=== PATIENT | female | born 2000 | race Caucasian/White ===

== ENCOUNTER 2021-03-08 15:51 | Emergency (ER) | payer OTHER, SELFPAY ==
[2021-03-08 15:56] VITALS: BP 113/63; PULSE 114; RESP 20; TEMP 36.7; O2SAT 100
--- NOTE | 2021-03-08 15:56 | ED.URI ---
HPI - URI/Sore Throat General Chief Complaint: Upper Respiratory Infection Stated Complaint: HEADACHE/SORE THROAT/DRAINAGE Time Seen by Provider: 03/08/21 15:56 Source: patient and RN notes reviewed Mode of arrival: ambulatory Limitations: no limitations History of Present Illness HPI Narrative: 20-year-old female presents to the [facility] with complaints of frontal sinus pain, postnasal drip and sore throat. States that when she woke up she started having the symptoms. Had taken ibuprofen 1 time at 2 PM today. Denies any cough, shortness of breath or chest pain. Denies fever. No history of asthma Denies any concerns for COVID-19. No loss of taste or smell. Related Data Allergies Allergy/AdvReac Type Severity Reaction Status Date / Time No Known Allergies Allergy Unverified 03/26/15 00:02 Review of Systems Review of Systems: All systems reviewed & are unremarkable except as noted in HPI and below Constitutional: Constitutional: Reports no additional constitutional complaints, Denies chills, Denies fatigue and Denies fever(s) ENT: Reports as per HPI, Denies change in voice, Reports headache(s) (frontal), Denies hoarseness, Reports nasal congestion, Reports nasal discharge, Reports sinus pressure and Reports sore throat Cardiovascular: Cardiovascular: Reports no additional cardiovascular complaints Respiratory: Respiratory: Reports no additional respiratory complaints, Denies chest congestion and Denies cough Gastrointestinal: Gastrointestinal: Reports no additional gastrointestinal complaints Musculoskeletal: Musculoskeletal: Reports no additional musculoskeletal complaints Integumentary/Breasts: Skin/Breast: Reports system reviewed and no additional complaints, except as docu Neurologic: Reports system reviewed and no additional complaints, except as documented Psychiatric: Psychiatric: Reports no additional psychiatric complaints PMFSH Comments At the time of my signature, I reviewed and agree with the nursing past medical, surgical, social, and family history. There is no relevant family history pertinent to the patient complaint. Exam Const: General: cooperative, healthy appearing, comfortable, no acute distress, well developed, alert and awake Nutritional Appearance: average body habitus Orientation/consciousness: patient oriented x3 Limitations: no limitations HENMT: Head: normal to inspection Ears: hearing grossly normal bilaterally, external ears normal and TM's normal bilaterally General nose exam: Normal external nose present, Abnormal mucous membranes and turbinates present boggy and Nasal discharge present clear Mouth: Yes Normal oral and palatal mucosa present and Yes lip normal Teeth and gingiva: dentition normal Throat: postnasal drainage Eyes: General: appearance normal, both eyes and all related structures Neck: Neck: normal visual inspection, full ROM and no lymphadenopathy Chest: Chest palpation & inspection: normal inspection of the chest Resp: Effort & Inspection: normal respiratory effort, able to speak in complete sentences, no audible wheezes, no cough and no respiratory distress Auscultation: clear to auscultation bilaterally Back/Spine/Pelvis: Back: no CVA tenderness Skin: General skin exam: normal color and no rashes or lesions noted Neuro: General: patient oriented x3, gait normal and moves all extremities Speech: normal speech Gait exam (Neuro): Normal gait present Extrem: General: normal to inspection, full ROM and capillary refill normal Psych: Appearance: grossly normal and well kempt Mental Status: mental status grossly normal Speech and movement: Normal speech and movement present Affect: normal affect Attitude: cooperative Thought process: Normal thought process present Thought content: Yes Normal thought content present Course Vital Signs Vital signs: Vital Signs Temperature 98.1 F 03/08/21 15:56 Pulse Rate 114 H 03/08/21 15:56 Respiratory Rate 20
== END 2021-03-08 16:14 | disposition home or self-care (01) ==
PROVIDERS: Emergency Provider Nurse Practitioner; PCP Urology
DX: R09.82 Postnasal drip (principal); J00 Acute nasopharyngitis [common cold]; J01.90 Acute sinusitis, unspecified
CPT/HCPCS: 87081; 87880; 99213; G0463

== ENCOUNTER 2022-03-23 17:44 | Emergency (ER) | payer OTHER, SELFPAY ==
[2022-03-23 17:50] VITALS: BP 122/73; PULSE 99; RESP 16; TEMP 36; O2SAT 100
--- NOTE | 2022-03-23 17:52 | ED.URI ---
HPI - URI/Sore Throat General Chief Complaint: Upper Respiratory Infection Stated Complaint: SORE THROAT/COUGH/TIRED Source: patient and RN notes reviewed Mode of arrival: ambulatory Limitations: no limitations History of Present Illness HPI Narrative: 21y/o female presented for c/o cough, sore throat and fatigue for about one week. Cough is worse at night, productive of green sputum, and she states it feels like mucus is stuck in her throat. States ears feel itchy. Denies sob, wheezing, sinus pressure, n/v/d/f/c. Taking otc meds with temporary relief. Home covid test negative 4 days ago. She is not boosted for covid. States brother has a sore throat as well. MD elicited complaint: cough Related Data Home Medications Medication Instructions Recorded Confirmed drospirenone 3 mg-ethinyl tablet 03/23/22 estradiol 0.02 mg tablet montelukast 10 mg tablet tablet 03/23/22 Allergies Allergy/AdvReac Type Severity Reaction Status Date / Time No Known Allergies Allergy Unverified 03/23/22 17:52 Review of Systems Review of Systems: CONSTITUTIONAL: Endorses malaise EYES: Denies visual changes, redness, or discharge ENT: Reports rhinorrhea, congestion, sinus pain, otalgia, sore throat CARDIOVASCULAR: Denies chest pain, palpitations, edema RESPIRATORY: Reports cough, post nasal drainage. Denies dyspnea Exam Narrative: GENERAL: Well-appearing EYES: conjunctivae clear ENT: Mucous membranes moist. TM pearly liu with normal light reflex bilaterally; no tragal tenderness. Oropharynx erythematous without lesions or exudate, tonsils absent, no drooling, no hoarseness, no trismus, uvula midline. NECK: Supple. No lymphadenopathy CHEST: Clear to auscultation, breath sounds equal. HEART: Regular rate and rhythm. No murmur heard. SKIN: Warm, dry, no rash. Course Course Emergency Course: Patient is aware of diagnosis, understands and agrees to treatment plan. Anticipatory guidance given. Patient agrees to follow-up as directed and is aware of reasons to seek care at the emergency department. Portions of this record may have been created with voice recognition software Level of Care: Express Care Visit Vital Signs Vital signs: Vital Signs Temperature 96.8 F L 03/23/22 17:50 Pulse Rate 99 03/23/22 17:50 Respiratory Rate 16 03/23/22 17:50 Blood Pressure 122/73 03/23/22 17:50 Pulse Oximetry 100 03/23/22 17:50 Oxygen Delivery Room Air 03/23/22 17:50 Temperature 96.8 F L 03/23/22 17:50 Pulse Rate 99 03/23/22 17:50 Respiratory Rate 16 03/23/22 17:50 Blood Pressure 122/73 03/23/22 17:50 Pulse Oximetry 100 03/23/22 17:50 Oxygen Delivery Room Air 03/23/22 17:50 reviewed MDM - URI/Sore Throat MDM Narrative Medical decision making narrative: Strep negative. She is advised on supportive treatments, prescription for steroid and Tessalon Perles. She is advised to follow-up with PCP. Verbalizes understanding. Differential Diagnosis Differential diagnosis: Likely upper respiratory infection, sinusitis, viral infection and pharyngitis Lab Data Labs: Strep Screen Presumptive Negative *(Reference Range: Negative)* Discharge Plan Discharge Clinical Impression: Pharyngitis, Allergic rhinitis Patient Disposition: Home, Self-Care Condition: Stable Instructions: Allergic Rhinitis (ED) Additional Instructions: Rapid strep swab was negative today You will be notified in a few days if the culture comes back positive for strep, and appropriate antibiotics will be called in at that time. if symptoms are due to a viral illness, it is not treated with antibiotics. Viral symptoms can be present for up to 10-14 days. Recommend Flonase spray and Zyrtec if you have sinus congestion Cough syrup may cause drowsiness; avoid driving or take it at night time. Tylenol 1000mg every 8 hours as needed for pain/fever Soft foods,
== END 2022-03-23 18:30 | disposition home or self-care (01) ==
PROVIDERS: Emergency Provider Nurse Practitioner Family; PCP Urology
DX: J02.9 Acute pharyngitis, unspecified (principal); J30.9 Allergic rhinitis, unspecified
CPT/HCPCS: 87081; 87880; 99213; G0463

== ENCOUNTER → 2022-08-11 16:55 | Outpatient (CLI) | payer OTHER, SELFPAY ==
--- NOTE | ~2022-08-11 | MR_ITS ---
EXAMINATION: MR lower leg LT wo con DATE: 08/11/2022 17:41 INDICATION: Postinflammatory skin changes. Left lower leg pain and erythema. TECHNIQUE: Magnetic resonance imaging (MRI) of the left lower leg was performed without intravenous c ontrast. COMPARISON: Left ankle radiographs 07/14/2013 FINDINGS: Bone alignment is normal. No fracture. Bone marrow signal intensity is normal. The musculat ure is normal. The neurovascular bundles are normal. There is a skin marker overlying distal fibular diaphysis. There is subcutaneous fat stranding in this area. There is fat stranding anterior to the A chilles tendon. Partially visualized is a small knee joint effusion. There is a small Miller's cyst. IMPRESSION: 1. Fat stranding superficial to distal fibular diaphysis and anterior to Achilles tendon, consistent with inflammation. Reviewed, dictated and finalized at location A. IMPRESSION: 1. Fat stranding superficial to distal fibular diaphysis and anterior to Achill es tendon, consistent with inflammation.
== END ==
PROVIDERS: PCP Urology
DX: R23.8 Other skin changes (principal)
CPT/HCPCS: 73718

== ENCOUNTER 2022-08-30 17:16 | Emergency (ER) | payer OTHER, SELFPAY ==
--- NOTE | 2022-08-30 17:28 | ED.URI ---
HPI - URI/Sore Throat General Chief Complaint: Upper Respiratory Infection Stated Complaint: cough, sore throat, headache Time Seen by Provider: 08/30/22 17:40 Source: patient Mode of arrival: ambulatory Limitations: no limitations History of Present Illness HPI Narrative: Ludwig is a 21-year-old female patient presenting to clinic today with complaints of cough, sore throat, and headache x4 days. She denies any fever or chills. She denies any known sick contacts MD elicited complaint: sore throat and nasal congestion Related Data Home Medications Medication Instructions Recorded Confirmed drospirenone 3 mg-ethinyl tablet 03/23/22 estradiol 0.02 mg tablet montelukast 10 mg tablet tablet 03/23/22 Allergies Allergy/AdvReac Type Severity Reaction Status Date / Time No Known Allergies Allergy Unverified 08/30/22 17:36 Review of Systems Review of Systems: Pertinent positives per HPI. Patient denies any fever, chills, rash, headache, visual changes, dizziness,shortness of breath, chest pain, palpitations, nausea, vomiting, diarrhea, constipation, abdominal pain, or any urinary issues. PMFSH Comments At the time of my signature, I reviewed and agree with the nursing past medical, surgical, social, and family history. There is no relevant family history pertinent to the patient complaint. Exam Narrative: General: Well-developed, well nourished, in no apparent distress Head: Normocephalic, atraumatic Eyes: Pupils equally round and reactive to light bilaterally, EOM intact, sclera and conjunctive clear, no discharge, lids normal Ears: TMs intact and clear, ear canals clear, no drainage, grossly hearing normal. Nose: Nares patent, clear nasal discharge, no inflammation, no sinus tenderness. Mouth: Oral pharynx without lesions or masses, good dentition, MMM. Post nasal drip Neck: Supple, trachea midline, no enlargement of anterior or posterior cervical nodes, no thyroid masses or goiter palpable. Cardio: Regular rate and rhythm, s1 and s2 normal, no murmur appreciated. Resp: Clear to auscultation bilaterally, no rhonchi, rales, wheezing or rubs Course Course Emergency Course: Portions of this record may have been created with voice recognition software. Level of Care: Express Care Visit Vital Signs Vital signs: Vital Signs Temperature 36.3 C L 08/30/22 17:29 Pulse Rate 86 08/30/22 17:29 Respiratory Rate 16 08/30/22 17:29 Blood Pressure 120/64 08/30/22 17:29 Pulse Oximetry 100 08/30/22 17:29 Temperature 36.3 C L 08/30/22 17:29 Pulse Rate 86 08/30/22 17:29 Respiratory Rate 16 08/30/22 17:29 Blood Pressure 120/64 08/30/22 17:29 Pulse Oximetry 100 08/30/22 17:29 Oxygen Delivery Room Air 08/30/22 17:37 Vital signs reviewed MDM - URI/Sore Throat MDM Narrative Medical decision making narrative: At the time of the patient is resting comfortably on the exam table. Strep and influenza testing was obtained both were negative in the clinic today. I suspect the patient has an upper respiratory infection/pharyngitis. Supportive measures were discussed with the patient she voiced understanding of discharge instructions and agrees to treatment plan. Differential Diagnosis Differential diagnosis: Likely upper respiratory infection, otitis media, sinusitis, viral infection, bronchitis, influenza, pharyngitis and other (COVID) Lab Data Labs: Influenza A Screen Negative Reference Range: Negative Influenza B Screen Negative Reference Range: Negative Discharge Plan Discharge Clinical Impression: Upper respiratory infection, Pharyngitis Patient Disposition: Home, Self-Care Condition: Stable Instructions: Antibiotic Form, Pharyngitis (ED), Upper Respiratory Infection (ED) Additional Instructions: Influenza testing and strep testing
[2022-08-30 17:29] VITALS: BP 120/64; PULSE 86; RESP 16; TEMP 36.3; O2SAT 100
== END 2022-08-30 18:04 | disposition home or self-care (01) ==
PROVIDERS: Emergency Provider Nurse Practitioner Family; PCP Urology
DX: J06.9 Acute upper respiratory infection, unspecified (principal); J02.9 Acute pharyngitis, unspecified
CPT/HCPCS: 87081; 87804; 87880; 99213; G0463

== ENCOUNTER 2022-09-02 18:21 | Emergency (ER) | payer OTHER, SELFPAY ==
[2022-09-02 18:29] VITALS: BP 106/66; PULSE 80; RESP 16; TEMP 36.2; O2SAT 100
--- NOTE | 2022-09-02 18:32 | ED.URI ---
HPI - URI/Sore Throat General Chief Complaint: Upper Respiratory Infection Stated Complaint: COUGH/CONGESTION/EARACHE/SINUS/SORE THROAT Time Seen by Provider: 09/02/22 18:32 Source: patient, RN notes reviewed and old records reviewed Mode of arrival: ambulatory Limitations: no limitations History of Present Illness HPI Narrative: 21 year old female who presents to [facility] care with complaints of sinus congestion, drainage, frontal headache, sinus pressure for the past 10 days. Patient reports that her cough is worse in the morning with some expectoration of yellowish greenish drainage. Patient reports that throat is also sore in the morning relates to copious sinus drainage in the back of her throat. Patient reports that she was checked for flu and strep the other day which were both negative. Patient states that her symptoms continue with no improvement despite use of OTC medications. MD elicited complaint: cough, sore throat, rhinorrhea, nasal congestion and sinus pain Onset (ago): day(s) (10) Able to tolerate fluids by mouth: Yes Treatments prior to arrival: cold medicine and other (flonase) Related Data Home Medications Medication Instructions Recorded Confirmed drospirenone 3 mg-ethinyl 1 tablet PO DAILY 03/23/22 09/02/22 estradiol 0.02 mg tablet montelukast 10 mg tablet 1 tablet PO DAILY 03/23/22 09/02/22 Allergies Allergy/AdvReac Type Severity Reaction Status Date / Time No Known Allergies Allergy Unverified 08/30/22 17:36 Review of Systems Review of Systems: CONSTITUTIONAL: Reports malaise, chills, sweats, low grade fever intermittent EYES: Denies visual changes, redness, or discharge. ENT: Reports rhinorrhea, congestion, sinus pain, otalgia and sore throat. CARDIOVASCULAR: Denies chest pain, palpitations, or edema. RESPIRATORY: Reports cough.? Denies dyspnea. GASTROINTESTINAL: Denies abdominal pain, nausea, vomiting, diarrhea SKIN: Denies rash or itching. MUSCULOSKELETAL: Denies myalgia. NEUROLOGIC Reports headache. 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 There is no relevant family history pertinent to the presenting complaint Exam Narrative: GENERAL: Well-appearing, well-nourished, and in no acute distress. HEAD: Normocephalic EYES: PERRLA, conjunctivae clear ENT: Nares clear, turbinates edematous and erythematous, yellowish green discharge. Mucous membranes moist. TM pearly liu with dull light reflex bilaterally; no tragal tenderness. Oropharynx erythematous without lesions. Tonsils not present with no lesions to throat and without exudate, no drooling, no hoarseness, no trismus, uvula midline.Post nasal discharge noted. facial pressure and headache. NECK: Supple. No lymphadenopathy CHEST: Clear to auscultation, breath sounds equal. No wheezing, rhonchi, rales, or stridor. No respiratory distress, speaks in full sentences.Sao2 100% on room air HEART: Regular rate and rhythm. No murmur heard. SKIN: Warm, dry, no rash. NEURO: Alert and oriented x3. PSYCH: Normal mood and affect Course Course Emergency Course: Patient is aware of diagnosis, understands and agrees to treatment plan.? Anticipatory guidance given.? Patient agrees to follow-up as directed and is aware of reasons t
== END 2022-09-02 18:55 | disposition home or self-care (01) ==
PROVIDERS: Emergency Provider Registered Nurse
DX: J32.9 Chronic sinusitis, unspecified (principal)
CPT/HCPCS: 99213; G0463

== ENCOUNTER 2024-11-10 17:09 | Emergency (ER) | payer OTHER, SELFPAY ==
[2024-11-10 17:30] VITALS: BP 119/81; PULSE 128; RESP 18; TEMP 37.3; O2SAT 100
[2024-11-10 17:45] LABS: EDSTREPNEGPOS1 Positive (Negative)
--- NOTE | 2024-11-10 18:15 | ED_ITS ---
HPI - URI/Sore Throat General Chief Complaint: Upper Respiratory Infection Stated Complaint: Strep symptoms History of Present Illness HPI Narrative: 23-year-old female presented for complaint of sore throat, fever, body aches. Onset yesterday. Taking Tylenol and ibuprofen. Denies cough, shortness of breath, wheezing, nausea, vomiting or lethargy. Related Data Home Medications ?Medication ?Instructions ?Recorded ?Confirmed ?Last Taken ?Type drospirenone 3 mg-ethinyl 1 tablet PO DAILY 03/23/22 11/10/24 Unknown History estradiol 0.02 mg tablet montelukast 10 mg tablet 1 tablet PO DAILY 03/23/22 11/10/24 Unknown History Allergies Allergy/AdvReac Type Severity Reaction Status Date / Time No Known Allergies Allergy Unverified 11/10/24 17:32 Review of Systems Review of Systems: Per [facility] Past Medical History Medical History (Updated 11/10/24 @ 18:17 by Adelita De La Cruz, [facility]) Strep pharyngitis Surgical History Surgical History History of tonsillectomy H/O foot surgery x2 Social History Social History (Updated 09/08/22 @ 07:27 by Sonam Reid NP) Smoking status: Never smoker Alcohol intake: current Alcohol use details: social Substance use: never 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 EYES: conjunctivae clear ENT: Mucous membranes moist. TM pearly liu with normal light reflex bilaterally; no tragal tenderness. Oropharynx erythematous without lesions. Tonsils not enlarged and without exudate. No drooling, no hoarseness, no trismus, uvula midline. No tripod positioning, hot potato voice, or soft palate swelling. NECK: Supple. No lymphadenopathy CHEST: Clear to auscultation, breath sounds equal. No respiratory distress, speaks in full sentences. HEART: Regular rate and rhythm. No murmur heard. SKIN: Warm, dry, no rash. NEURO: Alert and oriented x3. Course Course Emergency Course: Patient is aware of diagnosis, understands and agrees to treatment plan. Anticipatory guidance given. Patient agrees to follow-up as directed and is aware of reasons to seek care at the emergency department. Portions of this record may have been created with voice recognition software Level of Care: Express Care Visit Vital Signs Vital signs: Vital Signs Temperature 99.2 F 11/10/24 17:30 Pulse Rate 128 H 11/10/24 17:30 Respiratory Rate 18 11/10/24 17:30 Blood Pressure 119/81 11/10/24 17:30 Pulse Oximetry 100 11/10/24 17:30 Oxygen Delivery Room Air 11/10/24 17:30 Temperature 99.2 F 11/10/24 17:30 Pulse Rate 128 H 11/10/24 17:30 Respiratory Rate 18 11/10/24 17:30 Blood Pressure 119/81 11/10/24 17:30 Pulse Oximetry 100 11/10/24 17:30 Oxygen Delivery Room Air 11/10/24 17:30 MDM - URI/Sore Throat MDM Narrative Medical decision making narrative: POS strep result reviewed with pt. Advise supportive treatments. Patient is appropriate for outpatient treatment and follow-up. Differential Diagnosis Differential diagnosis: Likely upper respiratory infection, viral infection and pharyngitis Lab Data Labs: Lab Results 11/10/24 Range/Units 17:43 POC Grp A Strep Screen Positive (Negative) Discharge Plan Discharge Clinical Impression: Strep pharyngitis Patient Disposition: Home, Self-Care Condition: Stable Instructions: Antibiotic Form, Strep Throat (ED) Additional Instructions: - Take the antibiotic as directed. Fever and sore throat typically resolve withi n one to three days. Most patients can return to work, after 12 to 24 hours of antibiotic therapy, provided you are fever free and otherwise well. -Eat and drink things that are easy to swallow, like soft foods, cool liquids, tea with honey, or popsicles . -Salt water gargles and/or may use topical anesthetic ( Chloraseptic spray) or lozenges to relieve dryness or throat pain -Alternate Tylenol and ibuprofen as needed for pain and fever as directed. -Frequent hand washing or hand sanitation tank washer is one of the best ways to prevent spread of infection. Throw away the toothbrush after 24hours of antibiotic. -Follow up with primary care provider in 2-3 days if condition is not improving -Go to the ER if you have trouble breathing, cannot drink enough fluids, have muffled voice or drooling, difficulty opening your mouth, or severe swelling. Patient Language: Guatemalan Prescriptions: New amoxicillin 500 mg tablet 1,000 mg PO DAILY 10 Days Qty: 20 0RF No Action montelukast 10 mg tablet 1 tablet PO DAILY drospirenone-ethinyl estradiol 3-0.02 mg tablet 1 tablet PO DAILY Follow-up/Referrals: PHYSICIAN,HEALTH AND SAFETY REPRESENTATIVE [Primary Care Provider] - Stand Alone Forms: Work/School Release IP Time of Disposition: 18:19
== END 2024-11-10 18:23 | disposition home or self-care (01) ==
PROVIDERS: Emergency Provider Nurse Practitioner Family
DX: J02.0 Streptococcal pharyngitis (principal)
CPT/HCPCS: 87880; 99213; G0463